=== PATIENT | female | born 1955 | race Two or more races ===

== ENCOUNTER 2018-11-04 11:18 | Emergency (ER) | payer OTHER, MEDICAID ==
[~2018-11-04] VITALS: Ht 149.9 cm; Wt 47.4 kg
[2018-11-04 12:22] LABS: BASOPHILS # (AUTO) 0.02 x10^3/uL (0-0.1); BASOPHILS % (AUTO) 0 % (0-1); EOSINOPHILS % (AUTO) 0 % (1-7); LYMPHOCYTES % (AUTO) 17 % (22-44); MD NO; MEAN CORPUSCULAR HEMOGLOBIN 30.4 pg (27.0-34.8); MEAN CORPUSCULAR VOLUME 91.9 fL (80-100); MEAN PLATELET VOLUME 8.3 fL (7.4-10.4); MONOCYTES # (AUTO) 0.58 x10^3/uL (0.2-0.8); MONOCYTES % (AUTO) 12 % (2-9); NEUTROPHILS # (AUTO) 3.38 x10^3/uL (1.8-6.8); NEUTROPHILS % (AUTO) 71 % (42-75); PLATELET COUNT 161 x10^3/uL (130-400); RED BLOOD COUNT 5.21 x10^6/uL (3.82-5.3); RED CELL DISTRIBUTION WIDTH 13.4 % (9.6-15.2)
[2018-11-04 12:33] LABS: ALBUMIN 3.9 g/dL (3.4-5.0); ANION GAP 8 mmol/L (5-15); CALCIUM 8.8 mg/dL (8.5-10.1); CHLORIDE 103 mmol/L (98-107); CREATININE 1.38 mg/dL (0.55-1.02)
[2018-11-04 12:37] LABS: TROPONIN I < 0.015 ng/mL (0.000-0.045)
[2018-11-04] MEDS ORDERED: LISI-167 PO (12:44)
[2018-11-04] MEDS ORDERED: METH5TAB6 PO (12:44)
--- NOTE | 2018-11-04 12:47 | NUR ---
PT TO ED FOR SOB AND MILD COUGH SINCE YESTERDAY. CONNECTED TO ALL MONITORS. VSS. AWAITING MD ASSESSMENT.
[2018-11-04] MEDS ORDERED: ALBUTEROL/IPRATROPIUM 2.5MG/0.5MG, 3 ML NPPB ONE (13:30)
[2018-11-04] MEDS ORDERED: ACETAMINOPHEN 500 MG TABLET PO ONE (13:30)
[2018-11-04] MEDS ORDERED: ALBUTEROL/IPRATROPIUM 2.5MG/0.5MG, 3 ML ONE (13:35)
[2018-11-04] MEDS ORDERED: ACETAMINOPHEN 500 MG TABLET ONE (13:36)
[2018-11-04 13:37] VITALS: BP 112/59
--- NOTE | 2018-11-04 13:37 | NUR ---
RT AT BEDSIDE. PT MEDICATED PER OCT. VSS. NO NEEDS AT THIS TIME.
[2018-11-04] MEDS ORDERED: PLEASE ENTER ALLERGIES MC SCH (14:00)
== END 2018-11-04 14:19 | disposition home or self-care (01) ==
LOC: ED 14:17
DX: J45.909 Unspecified asthma, uncomplicated (principal)
CPT/HCPCS: 36415; 71045; 80048; 82040; 83880; 84484; 85025; 93005; 94640; 99284; J7512; J7620